=== PATIENT | female | born 1960 | race Hispanic/Latino ===

== ENCOUNTER 2017-07-30 21:31 | Emergency (ER) | payer OTHER ==
[2017-07-30] MEDS ORDERED: ACETAMINOPHEN 325 MG TAB ONE (22:26)
== END 2017-07-30 22:53 | disposition home or self-care (01) ==
LOC: EDH 21:31
DX: S39.012A Strain of muscle, fascia and tendon of lower back, initial encounter (principal); S80.01XA Contusion of right knee, initial encounter; I10 Essential (primary) hypertension; W18.39XA Other fall on same level, initial encounter; Y93.01 Activity, walking, marching and hiking; Y92.89 Other specified places as the place of occurrence of the external cause; Y99.8 Other external cause status
CPT/HCPCS: 72100; 73562

== ENCOUNTER 2022-05-22 21:20 | Emergency (ER) | payer BC, OTHER ==
[~2022-05-22] VITALS: Ht 162.6 cm; Wt 61.2 kg
[2022-05-23] MEDS ORDERED: PROCHLORPERAZINE 10MG/2ML INJ IV ONE
[2022-05-23] MEDS ORDERED: 0.9%NACL 1000ML 1,000 ML IV ONE
[2022-05-23] MEDS ORDERED: DiphenhydrAMINE HCL 50 MG/ML VIAL IV ONE
[2022-05-23] MEDS ORDERED: ACETAMINOPHEN 325 MG TAB PO ONE
[2022-05-23 00:26] LABS: APPEARANCE,URINE CLEAR (CLEAR); BILIRUBIN,URINE NEGATIVE (NEGATIVE); COLOR,URINE YELLOW (YELLOW); GLUCOSE, URINE (UA) NEGATIVE (NEGATIVE); KETONES,URINE 20 mg/dL (NEGATIVE); LEUKOCYTE ESTERASE ,URINE 25 Leu/uL (NEGATIVE); NITRATE,URINE NEGATIVE (NEGATIVE); PROTEIN,URINE 30 mg/dL (NEGATIVE); UROBILINOGEN,URINE 0.2 mg/dL (0.2-1.0)
[2022-05-23 00:34] LABS: CREATININE 0.8 mg/dL (0.5-1.5); POTASSIUM 3.8 mmol/L (3.5-5.1)
[2022-05-23 00:38] LABS: ALBUMIN 4.2 g/dL (3.5-5.0); TOTAL PROTEIN, SERUM 8.7 g/dL (6.0-8.3)
[2022-05-23 00:40] LABS: BASOPHILS % (AUTO) 0.4 % (0.0-5.0); HEMATOCRIT 44.2 % (36-48); LYMPHOCYTES % (AUTO) 10.4 % (21.0-51.0); MEAN CORPUSCULAR HEMOGLOBIN 29.5 pg (27.0-33.0); MEAN CORPUSCULAR HGB CONC 33.3 g/dL (32.0-36.0); MEAN CORPUSCULAR VOLUME 88.6 fL (79-99); MONOCYTES % (AUTO) 5.4 % (3.0-13.0); NEUTROPHILS % (AUTO) 83.3 % (40.0-77.0); PLATELET COUNT (AUTO) 249 K/uL (130-400); RED BLOOD CELL COUNT(AUTO) 4.99 MIL/uL (4.00-5.50); RED CELL DISTRIBUTION WIDTH 13.2 % (11.0-15.5); WHITE BLOOD COUNT (AUTO) 12.3 K/uL (4.8-10.8)
[2022-05-23 00:41] LABS: MUCUS,URINE RARE LPF (None Seen); SQUAMOUS EPITHELIAL CELL,UR MOD /HPF (0-2)
[2022-05-23 01:01] VITALS: BP 138/64
[2022-05-23] MEDS ORDERED: PHEN118L19 PO (01:03)
[2022-05-23] MEDS ORDERED: ONDA22I IM (01:03)
[2022-05-23] MEDS ORDERED: AMOX-426 PO (01:03)
[2022-05-23] MEDS ORDERED: IBUP-2070 PO (01:03)
== END 2022-05-23 01:25 | disposition home or self-care (01) ==
LOC: EDH 21:20
DX: J01.90 Acute sinusitis, unspecified (principal); R09.89 Other specified symptoms and signs involving the circulatory and respiratory systems; R50.9 Fever, unspecified; I10 Essential (primary) hypertension; Z20.822 Contact with and (suspected) exposure to COVID-19; Z79.1 Long term (current) use of non-steroidal anti-inflammatories (NSAID)
CPT/HCPCS: 99284; 70450; 87635; 80053; 83690; 85025; 87088; 87880; 87804 ×2; 81001; 36415; 96374; 96375; C9803; J1200; J7030; J0780